=== PATIENT | male | born 1960 | race Caucasian/White ===

== ENCOUNTER 2018-03-09 14:25 | Emergency (ER) | payer MEDICAID ==
[~2018-03-09] VITALS: Ht 177.8 cm; Wt 92.5 kg
[~2018-03-09 14:25] MED LIST: DULO20CA45 PO; INSULIN 70/30
[2018-03-09] MEDS ORDERED: SODIUM CHLORIDE 0.9% 1,000ML IVBOLUS ONE (15:00)
[2018-03-09] MEDS ORDERED: SODIUM CHLORIDE FLUSH 10ML SYR IVF ONE (15:00)
[2018-03-09 15:24] LABS: ALANINE AMINOTRANSFERASE 161 U/L (12-78); ALBUMIN 3.6 g/dL (3.4-5.0); ALKALINE PHOSPHATASE 103 U/L (45-117); ANION GAP 9 mmol/L (5-15); BILIRUBIN,TOTAL 0.8 mg/dL (0.2-1.0); CALCIUM 9.2 mg/dL (8.5-10.1); CHLORIDE 98 mmol/L (98-107); CREATININE 1.23 mg/dL (0.7-1.3); TOTAL PROTEIN 7.4 g/dL (6.4-8.2)
[2018-03-09 15:56] LABS: MEAN CORPUSCULAR HEMOGLOBIN 27.8 pg (27.5-34.5); MEAN CORPUSCULAR HGB CONC 33.9 g/dL (33.2-36.2); MEAN CORPUSCULAR VOLUME 81.9 fL (81-97); MEAN PLATELET VOLUME 12.3 fL (7.4-10.4); PLATELET COUNT 78 x10^3/uL (130-400); RED BLOOD COUNT 4.65 x10^6/uL (4.38-5.82); RED CELL DISTRIBUTION WIDTH 14.6 % (9.4-14.8)
[2018-03-09 15:57] LABS: BASOPHILS # (AUTO) 0.01 x10^3/uL (0-0.1); BASOPHILS % (AUTO) 0 % (0-1); EOSINOPHILS # (AUTO) 0.01 x10^3/uL (0-0.4); EOSINOPHILS % (AUTO) 0 % (1-7); LYMPHOCYTES # (AUTO) 1.92 x10^3/uL (1-3.4); LYMPHOCYTES % (AUTO) 50 % (22-44); MD SCAN; MONOCYTES # (AUTO) 0.29 x10^3/uL (0.2-0.8); MONOCYTES % (AUTO) 7 % (2-9); NEUTROPHILS # (AUTO) 1.63 x10^3/uL (1.8-6.8); NEUTROPHILS % (AUTO) 42 % (42-75)
[2018-03-09] MEDS ORDERED: INSULIN REGULAR 100 UNITS/ML, 3ML VIAL IVPush ONE (16:00)
[2018-03-09 16:30] LABS: ACETONE, SERUM Trace (10mg/dL) mg/dL (Negative)
[2018-03-09 16:35] LABS: MICROSCOPIC NOT IND
[2018-03-09 16:44] LABS: CULTURE INDICATED? NO
[2018-03-09 17:10] VITALS: BP 143/75
== END 2018-03-09 17:32 | disposition home or self-care (01) ==
LOC: ED 17:13
DX: E11.65 Type 2 diabetes mellitus with hyperglycemia (principal); I10 Essential (primary) hypertension; Z76.0 Encounter for issue of repeat prescription; Z87.891 Personal history of nicotine dependence
CPT/HCPCS: 36415; 80053; 81003; 82010; 82800; 82962; 83735; 85025; 93005; 96361; 96374; 99284; J7030